=== PATIENT | male | born 1970 | race Caucasian/White ===

== ENCOUNTER 2020-10-02 08:38 | Inpatient (IN) | payer SELFPAY ==
[~2020-10-02] VITALS: Ht 177.8 cm; Wt 129.3 kg
[2020-10-02] MEDS ORDERED: LISINOPRIL40 MG PO (08:44)
[2020-10-02 09:11] LABS: BASOPHILS 0.3 % (0-2); EOSINOPHILS 4.3 % (0-7); HEMATOCRIT 37.2 % (42.0-54.0); HEMOGLOBIN 12.2 g/dL (13.5-17.5); IMMATURE GRANULOCYTES 0.2 % (0-5); LYMPHOCYTE ABS# 1.87 10x3/uL (1.32-3.57); LYMPHOCYTES 20.4 % (15-50); MCH 28.8 pg (26.0-34.0); MCHC 32.8 g/dL (31.0-37.0); MCV 87.7 fL (80.0-100.0); MEAN PLATELET VOLUME 9.3 fL (7.4-10.4); MONOCYTES 7.7 % (2-11); NEUTROPHIL ABS# 6.14 10x3/uL (1.78-5.38); NEUTROPHILS 67.1 % (40-80); RBC 4.24 10x6/uL (4.20-6.10); RDW 13.9 % (11.5-14.5); WBC 9.2 10x3/uL (4.8-10.8)
[2020-10-02 09:12] LABS: PLATELET COUNT 284 10x3/uL (130-400)
[2020-10-02 09:17] LABS: CALC OSMOLALITY 283 mosm/kg (275-300); CALCIUM 8.9 mg/dL (8.5-10.1); CARBON DIOXIDE 23.9 mmol/L (21.0-32.0); CHLORIDE - SERUM 106 mmol/L (98-107); CREATININE - SERUM 1.5 mg/dL (0.6-1.3); GLUCOSE 93 mg/dL (74-106); POTASSIUM - SERUM 3.5 mmol/L (3.5-5.1); SODIUM 142 mmol/L (136-145); UREA NITROGEN 16 mg/dL (7-18); eGFR NON AFRICAN AMERICAN 53 mL/min (90-120)
[2020-10-02 09:23] LABS: APTT 31.1 SECONDS (22.8-39.4); INR 1.15 (0.85-1.17); PROTIME 13.6 SECONDS (11.6-15.0)
[2020-10-02 09:27] LABS: SARS-CoV-2 ANTIGEN NEGATIVE- SARS-COV-2 (NEGATIVE)
[2020-10-02 09:34] LABS: ALBUMIN 4.1 g/dL (3.4-5.0); ALKALINE PHOSPHATASE 78 U/L (30-120); ALT (SGPT) 61 U/L (10-68); BILIRUBIN - TOTAL 1.42 mg/dL (0.2-1.3); CKMB 4.1 U/L (0.0-3.6); CREATINE KINASE 296 UL (21-232); PRO BNP 2001 pg/mL (0-125); PROTEIN - SERUM 7.6 g/dL (6.4-8.2); TROPONIN-I 0.045 ng/mL (0.000-0.060)
[2020-10-02 09:57] VITALS: BP 165/103
[2020-10-02 14:29] VITALS: BP 177/108
[2020-10-02 15:46] LABS: CKMB 3.1 U/L (0.0-3.6); CREATINE KINASE 236 UL (21-232); TROPONIN-I 0.044 ng/mL (0.000-0.060)
--- NOTE | 2020-10-02 15:50 | NUR ---
REPORT CALLED TO THIS RN BY SNETHIL AMOS IN ER.
[2020-10-02 15:54] VITALS: BP 148/101
--- NOTE | 2020-10-02 16:20 | NUR ---
ARRIVED TO UNIT FROM ER VIA W/C IN STABLE CONDITION ACCOMPANIED BY HOSPITAL STAFF, ORIENTED TO UNIT, ORIENTED TO ROOM, ORIENTED TO BED CONTROLS, ORIENTED TO ISOLATION PRACTICES, ASSIST TO BED, OBTAINED WT/HT/VS, CURRENTLY LYING IN BED, AWAKE/ALERT/ORIENTED, T/R SELF AD EDILSON, CONT OF B/B WITH BRPs PER SELF AD EDILSON, DENIES PAIN/OTHER DISCOMFORT AT THIS TIME, PT SOB, PLACED ON O2 AT 2 LPM VIA NC, CALL LIGHT/PHONE AT BEDSIDE, NO S/S OF ACUTE DISTRESS OBSERVED.
[2020-10-02 17:33] VITALS: BP 174/99; Ht 177.8 cm; Wt 129.3 kg
[2020-10-02 19:23] VITALS: BP 178/112
[2020-10-02 22:53] LABS: CKMB 3.6 U/L (0.0-3.6); CREATINE KINASE 223 UL (21-232); TROPONIN-I 0.055 ng/mL (0.000-0.060)
[2020-10-03 00:11] VITALS: BP 171/109
[2020-10-03 05:04] VITALS: BP 172/120
[2020-10-03 06:48] LABS: BASOPHILS 0.4 % (0-2); EOSINOPHILS 3.5 % (0-7); HEMATOCRIT 36.2 % (42.0-54.0); HEMOGLOBIN 11.7 g/dL (13.5-17.5); IMMATURE GRANULOCYTES 0.2 % (0-5); LYMPHOCYTE ABS# 1.48 10x3/uL (1.32-3.57); LYMPHOCYTES 14.8 % (15-50); MCH 28.6 pg (26.0-34.0); MCHC 32.3 g/dL (31.0-37.0); MCV 88.5 fL (80.0-100.0); MEAN PLATELET VOLUME 9.6 fL (7.4-10.4); MONOCYTES 7.5 % (2-11); NEUTROPHIL ABS# 7.33 10x3/uL (1.78-5.38); NEUTROPHILS 73.6 % (40-80); PLATELET COUNT 304 10x3/uL (130-400); RBC 4.09 10x6/uL (4.20-6.10); RDW 14.1 % (11.5-14.5)
[2020-10-03 07:40] VITALS: BP 144/102
--- NOTE | 2020-10-03 08:00 | NUR ---
AM MEDS GIVEN AT THIS TIME. GAVE 10MG OF APRESOLINE FOR HIGH BP. PT UP AD EDILSNO IN ROOM. A/O X4 RESP EVEN AND NONLABORED ON RA. RT AC IV SL. SR 95 ON TELEMETRY. WENT OVER PLAN OF CARE WITH PT, PT DENIES ANY NEEDS AT THIS TIME. CALL LIGHT IN REACH.
[2020-10-03 08:35] LABS: ALBUMIN 3.9 g/dL (3.4-5.0); ALKALINE PHOSPHATASE 77 U/L (30-120); ALT (SGPT) 51 U/L (10-68); BILIRUBIN - TOTAL 1.49 mg/dL (0.2-1.3); CALC OSMOLALITY 278 mosm/kg (275-300); CALCIUM 8.5 mg/dL (8.5-10.1); CARBON DIOXIDE 22.9 mmol/L (21.0-32.0); CHLORIDE - SERUM 105 mmol/L (98-107); CKMB 2.2 U/L (0.0-3.6); CREATINE KINASE 179 UL (21-232); CREATININE - SERUM 1.2 mg/dL (0.6-1.3); GLUCOSE 103 mg/dL (74-106); MAGNESIUM - SERUM 2.2 mg/dL (1.8-2.4); POTASSIUM - SERUM 3.8 mmol/L (3.5-5.1); PROTEIN - SERUM 6.9 g/dL (6.4-8.2); SODIUM 140 mmol/L (136-145); TROPONIN-I 0.037 ng/mL (0.000-0.060); UREA NITROGEN 13 mg/dL (7-18); eGFR NON AFRICAN AMERICAN 69 mL/min (90-120)
[2020-10-03] MEDS ORDERED: NORVASC10 MG PO (11:07)
[2020-10-03] MEDS ORDERED: MICARDIS40 MG PO (11:07)
[2020-10-03 11:09] VITALS: BP 140/81
[2020-10-03 11:11] LABS: CKMB 2.5 U/L (0.0-3.6); CREATINE KINASE 173 UL (21-232)
--- NOTE | 2020-10-03 13:05 | NUR ---
RX'S FOR MISARTAN AND NORVASC CALLED TO [facility] [address]. SPOKE WITH PHARMACIST, AILIN.
--- NOTE | 2020-10-03 13:46 | NUR ---
PROVIDED VERBAL AND WRITTEN DISCHARGE TEACHING TO PT, WHO VERBALIZED UNDERSTANDING REGARDING TEACHING. PROVIDED PT WITH MEDICAITONS FOR TOMORROW. PT WAITING ON RIDE, WILL NOTIFY NURSE WHEN READY FOR WHEELCHAIR.
--- NOTE | 2020-10-03 15:47 | NUR ---
PT LEFT UNIT VIA WHEELCHAIR, WITH ALL BELONGINGS, NAD NOTED.
--- NOTE | 2020-10-03 16:54 | MORECARE ---
CASE MANAGEMENT DISCHARGE SUMMARY PATIENT: FILOMENA WU UNIT: [id number] ADM DATE: 10/02/20 AGE: 50 : 74 SEX: M ROOM/BED: D.2139 AUTHOR: IBIS CHAPMAN PHYSICIAN: REFERRING PHYSICIAN: YUE SANTANA MD DATE OF SERVICE: 10/03/20 Discharge Plan Patient Name: FILOMENA WU [facility] [facility] 1970 Planned Disposition: Home Anticipated Discharge Date: 10/03/20 Discharge Date: 10/03/2020 Expected LOS: 1 Initial Reviewer: [email or web address] Initial Review Date: 10/02/2020 Generated: 10/03/20 5:53 pm Patient Name: FILOMENA WU Page [id number] at 1654 All edits/amendments must be made on the electronic document DICTATION DATE: 10/03/201652 GUZZLER BUILDER: ABILIO 10/03/201652 RPT#: [id number] DC DATE:10/03/20 STATUS: DIS IN [facility] [address] [place] [address] END OF REPORT
--- NOTE | 2020-10-03 17:02 | MORECARE ---
CASE MANAGEMENT DISCHARGE SUMMARY PATIENT: FILOMENA WU UNIT: [id number] ADM DATE: 10/02/20 AGE: 50 : 74 SEX: M ROOM/BED: D.4660 AUTHOR: ARIDOC PHYSICIAN: REFERRING PHYSICIAN: YUE SANTANA MD DATE OF SERVICE: 10/03/20 Discharge Plan Patient Name: FILOMENA WU Facility: [facility]:[place] : 1970 Planned Disposition: Home Anticipated Discharge Date: 10/03/20 Discharge Date: 10/03/2020 Expected LOS: 1 Initial Reviewer: [email or web address] Initial Review Date: 10/02/2020 Generated: 10/03/20 6:01 pm Comments DCP- Discharge Planning Updated by [email or web address]: Thomas Randall on 10/03/20 3:[address] CM met with patient to complete DC plan and to evaluate needs. At discharge, the patient plans to return home and feels this is a safe discharge. CM discussed availability of home health, rehab services, and medical equipment. Patient declined HHS, SNF, IPR, and DME. Patient stated that he will not be able to get his blood pressure medications until Monday when his money will deposit into his account. Patient stated that he will get his medications on Monday. CM team coordinated with [facility] pharmacy and house servant to arrange medication coverage over weekend. Patient voiced no other needs at this time and is satisfied with DC plan. CM will continue to follow and will assist as needed with dc plans/needs. DCPIA - Discharge Planning Initial Assessment Updated by [email or web address]: Thomas Randall on 10/03/20 4:55 pm * Is the patient Alert and Oriented? Yes * How many steps to enter\exit or inside your home? 0/0 * PCP NONE * Pharmacy [facility] on [address] - [facility] [address] * Preadmission Environment Home Alone * ADLs Independent * Equipment Cane * Other Equipment n/a * List name and contact numbers for known caregivers / representatives who currently or will assist patient after discharge: TAMMI ROJAS * Verbal permission to speak to the caregivers and representatives has been obtained from the patient. Yes * Community resources currently utilized None * Please name any agencies selected above. n/a * Additional services required to return to the preadmission environment? No * Can the patient safely return to the preadmission environment? Yes * Has this patient been hospitalized within the prior 30 days at any hospital? No Last DP export: 10/03/20 3:54 p Patient Name: FILOMENA WU Page [phone] at 1702 All edits/amendments must be made on the electronic document DICTATION DATE: 10/03/201701 GROUP THERAPY COUNSELOR: ABILIO 10/03/201701 RPT#: [id number] DC DATE:10/03/20 STATUS: DIS IN [facility] [address] [place] [address] END OF REPORT
--- NOTE | 2020-10-05 07:43 | MORECARE ---
CASE MANAGEMENT DISCHARGE SUMMARY PATIENT: FILOMENA WU UNIT: [id number] ADM DATE: 10/02/20 AGE: 50 : 74 SEX: M ROOM/BED: D.3707 AUTHOR: ARIDOC PHYSICIAN: REFERRING PHYSICIAN: YUE SANTANA MD DATE OF SERVICE: 10/05/20 Discharge Plan Patient Name: FILOMENA WU Facility: [facility]:[place] : 1970 Planned Disposition: Home Anticipated Discharge Date: 10/03/20 Discharge Date: 10/03/2020 Expected LOS: 1 Initial Reviewer: [email or web address] Initial Review Date: 10/02/2020 Generated: 10/05/20 8:43 am Comments DCP- Discharge Planning Updated by [email or web address]: Thomas Randall on 10/03/20 3:[address] CM met with patient to complete DC plan and to evaluate needs. At discharge, the patient plans to return home and feels this is a safe discharge. CM discussed availability of home health, rehab services, and medical equipment. Patient declined HHS, SNF, IPR, and DME. Patient stated that he will not be able to get his blood pressure medications until Monday when his money will deposit into his account. Patient stated that he will get his medications on Monday. CM team coordinated with [facility] pharmacy and electrician helper powerhouse to arrange medication coverage over weekend. Patient voiced no other needs at this time and is satisfied with DC plan. CM will continue to follow and will assist as needed with dc plans/needs. DCPIA - Discharge Planning Initial Assessment Updated by [email or web address]: Thomas Randall on 10/03/20 4:55 pm * Is the patient Alert and Oriented? Yes * How many steps to enter\exit or inside your home? 0/0 * PCP NONE * Pharmacy [facility] on [address] - [facility] [address] * Preadmission Environment Home Alone * ADLs Independent * Equipment Cane * Other Equipment n/a * List name and contact numbers for known caregivers / representatives who currently or will assist patient after discharge: TAMMI ROJAS * Verbal permission to speak to the caregivers and representatives has been obtained from the patient. Yes * Community resources currently utilized None * Please name any agencies selected above. n/a * Additional services required to return to the preadmission environment? No * Can the patient safely return to the preadmission environment? Yes * Has this patient been hospitalized within the prior 30 days at any hospital? No Last DP export: 10/03/20 4:02 p Patient Name: FILOMENA WU Page [phone] at 0743 All edits/amendments must be made on the electronic document DICTATION DATE: 10/05/20742 ELECTROCARDIOGRAPH OPERATOR: ABILIO 10/05/2043 RPT#: [id number] DC DATE:10/03/20 STATUS: DIS IN [facility] [address] [place] [address] END OF REPORT
== END 2020-10-03 15:47 | disposition home or self-care (01) | DRG 304 ==
LOC: D.ER 08:38 → D.EDHOLD 12:10 → D.M2 12:10
PROVIDERS: Family Medicine; ADMIT Emergency Medicine; ATTEND Emergency Medicine
DX: I16.0 Hypertensive urgency (principal); J18.9 Pneumonia, unspecified organism; N17.9 Acute kidney failure, unspecified; Z68.41 Body mass index [BMI] 40.0-44.9, adult; E66.01 Morbid (severe) obesity due to excess calories; J44.9 Chronic obstructive pulmonary disease, unspecified

== ENCOUNTER 2020-11-25 09:26 | Inpatient (IN) | payer MEDICAID ==
--- NOTE | 2020-11-24 20:11 | NUR ---
RECIEVED SITTING UP IN SIDE OF BED. SCRATCHING HIS ARM WITH C/O DRY SKIN. GAVE HIM SOME LOTION. ALERT AND ORIENTED X4. UP AD EDILSON. TELEMETRY IN PLACE. DENIES ANY NEEDS AT THIS TIME.
[~2020-11-25] VITALS: Ht 177.8 cm; Wt 122.5 kg
--- NOTE | ~2020-11-25 | EC ---
PATIENT:FILOMENA WU DATE OF SERVICE: 11/25/20 SEX: M MEDICAL RECORD: [id number] DATE OF : 74 LOCATION:D.M2 D.212 AGE OF PATIENT: 50 ADMISSION DATE: 11/25/20 REFERRING PHYSICIAN: INTERPRETING PHYSICIAN: DAVID LLOYD MD ECHOCARDIOGRAM REPORT ECHO CHARGES 4 ECHO COMPLETE Date: 11/26/20 CLINICAL DIAGNOSIS: SOB, CP ECHOCARDIOGRAPHIC MEASUREMENTS (adult normal given) AC root (d.<3.7cm) 3.1 cm LV Septum d (<1.2 cm> 1.5 cm Valve Excursion 1.9 cm LV Septum (systole) 1.8 cm Left Atria (s.<4.0cm> 5.1 cm LVPW d(<1.2cm) 1.3 cm RV (d.<2.3cm) 3.5 cm LVPW (sytole) 1.4 cm LV diastole(<5.6CM) 6.5 cm MV E-F(>70mm/sec) cm LV systole 5.4 cm LVOT Diameter 2.1 cm MV exc.(>10mm) 1.4 cm Est.ejection fraction (50-75%) % DOPPLER: LVIT cm/sec A 38 cm/sec E 93 cm/sec LA cm/sec RVSP 40 mmHg LVOT 65 cm/sec AOP1/2T m/s Asc. Ao 120 cm/sec RVOT 59 cm/sec RA cm/sec PA 85 cm/sec AV Gradient Peak 5.7 mmHg AV Mean 3.0 mmHg AV Area 1.8 cm MV Gradient Peak 7.0 mmHg MV Mean 2.0 mmHg MV Area cm COMMENTS: Kiln Charger: Shanae CHAVEZ Satellite Communications Engineer: 5 Dr. Lloyd TAPE# Pericardial Effusion N DATE OF SERVICE: CLINICAL DIAGNOSIS: Chest pain/shortness of breath. 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 Overall, normal left ventricular chamber size and contractile function, ejection fraction 55%. FINDINGS: Left atrial chamber appears normal. Right atrium and right ventricular chamber size and function appears normal. Aortic valve appears ECHOCARDIOGRAM REPORT [id number] FILOMENA WU normal. No aortic regurgitation. Mitral valve appears normal. Mild mitral regurgitation. Tricuspid valve appears normal. Trace to mild tricuspid regurgitation. Pulmonic valve is not well visualized. No pulmonary insufficiency noted. No pericardial effusion visualized. IMPRESSION: Overall, normal left ventricular chamber size and contractile function, ejection fraction 55%. TRANSINT:[id number] Voice Confirmation ID: [id number] DOCUMENT ID: [id number] DAVID LLOYD MD CC: [id number] DICTATION DATE: 11/26/20 1537 RECORDS ASSOCIATE: 11/26/202008 ADM IN [facility] [address] [place] [id number]
[~2020-11-25 09:26] MED LIST: LISINOPRIL40 MG PO; MICARDIS40 MG PO; NORVASC10 MG PO
--- NOTE | 2020-11-25 09:57 | NUR ---
RT NOTIFIED OF ABG, INHALER TREATMENT.
[2020-11-25 10:11] LABS: BASOPHILS 0.5 % (0-2); EOSINOPHILS 18.2 % (0-7); HEMOGLOBIN 9.7 g/dL (13.5-17.5); IMMATURE GRANULOCYTES 0.1 % (0-5); LYMPHOCYTE ABS# 0.89 10x3/uL (1.32-3.57); LYMPHOCYTES 11.2 % (15-50); MCH 26.9 pg (26.0-34.0); MCHC 31.3 g/dL (31.0-37.0); MCV 85.9 fL (80.0-100.0); MEAN PLATELET VOLUME 8.8 fL (7.4-10.4); MONOCYTES 12.6 % (2-11); NEUTROPHIL ABS# 4.56 10x3/uL (1.78-5.38); NEUTROPHILS 57.4 % (40-80); PLATELET COUNT 254 10x3/uL (130-400); RBC 3.61 10x6/uL (4.20-6.10); RDW 15.5 % (11.5-14.5)
[2020-11-25 10:20] LABS: CALC OSMOLALITY 272 mosm/kg (275-300); CALCIUM 8.6 mg/dL (8.5-10.1); CARBON DIOXIDE 26.1 mmol/L (21.0-32.0); CHLORIDE - SERUM 102 mmol/L (98-107); CREATININE - SERUM 1.3 mg/dL (0.6-1.3); GLUCOSE 105 mg/dL (74-106); POTASSIUM - SERUM 4.4 mmol/L (3.5-5.1); SODIUM 136 mmol/L (136-145); UREA NITROGEN 15 mg/dL (7-18); eGFR NON AFRICAN AMERICAN 62 mL/min (90-120)
[2020-11-25 10:26] LABS: SARS-CoV-2 ANTIGEN NEGATIVE- SARS-COV-2 (NEGATIVE)
[2020-11-25 10:28] LABS: APTT 40.8 SECONDS (22.8-39.4); INR 1.31 (0.85-1.17); PROTIME 15.1 SECONDS (11.6-15.0)
[2020-11-25 10:35] LABS: ALBUMIN 2.8 g/dL (3.4-5.0); ALKALINE PHOSPHATASE 88 U/L (30-120); ALT (SGPT) 46 U/L (10-68); BILIRUBIN - TOTAL 0.99 mg/dL (0.2-1.3); CKMB 1.1 U/L (0.0-3.6); CREATINE KINASE 44 UL (21-232); PRO BNP 1758 pg/mL (0-125); PROTEIN - SERUM 6.4 g/dL (6.4-8.2)
--- NOTE | 2020-11-25 10:37 | NUR ---
BLOOD CULTURE #2 DRAWN ET TO LAB AT THIS TIME.
[2020-11-25] MEDS ORDERED: BAYER CHEWABLE81 MG PO (11:02)
[2020-11-25] MEDS ORDERED: PLAVIX75 MG PO (11:03)
[2020-11-25] MEDS ORDERED: COREG25 MG PO (11:03)
[2020-11-25] MEDS ORDERED: CLONIDINE HCL0.1 MG PO (11:03)
[2020-11-25] MEDS ORDERED: ENTRESTO 24 MG1 EACH PO (11:03)
[2020-11-25] MEDS ORDERED: K-DUR20 MEQ PO (11:04)
[2020-11-25] MEDS ORDERED: NITROQUICK0.4 MG SL (11:04)
[2020-11-25] MEDS ORDERED: FUROSEMIDE40 MG PO (11:04)
[2020-11-25] MEDS ORDERED: CRESTOR40 MG PO (11:04)
[2020-11-25 13:51] LABS: CKMB 1.3 U/L (0.0-3.6); CREATINE KINASE 43 UL (21-232); TROPONIN-I 0.027 ng/mL (0.000-0.060)
--- NOTE | 2020-11-25 15:00 | NUR ---
MEAL TRAY TO PT.
--- NOTE | 2020-11-25 16:15 | NUR ---
ARRIVED TO FLOOR VIA WHEELCHAIR. COVID ISOLATION IN PLACE. ON 2LNC. DENIES NEEDS AT THIS TIME. CONTINUE POC AND SAFETY PRECAUTIONS. CALL LIGHT IN REACH.
--- NOTE | 2020-11-25 17:55 | NUR ---
DR. AMIN STATES PATIENT IS NOT COVID JUST CHF. STATES WE CAN TAKE HIM OUT OF ISOLATION. LEFT SP A MESSAGE TO LET HER KNOW.
[2020-11-25 18:12] VITALS: BMI 38.8
[2020-11-25 20:00] VITALS: BP 105/76
[2020-11-25 20:44] LABS: CKMB 1.3 U/L (0.0-3.6); CREATINE KINASE 39 UL (21-232); TROPONIN-I 0.027 ng/mL (0.000-0.060)
[2020-11-26] VITALS: BP 131/95
--- NOTE | 2020-11-26 00:54 | NUR ---
DIGITAL STRATEGIST CALLED EARLIER TO REPORT HE IS IN 150'S WITH A FLUTTER. STAYED IN FLUTTER. CALLED DR. SANTIAGO WITH ORDERS FOR CARDIZEM GTT AT 10CC/HR. HE IS ASYMPTOMATIC OTHERWISE.
--- NOTE | 2020-11-26 02:24 | NUR ---
IV OUT. DOES NOT KNOW HOW IT CAME OUT. VERY ACTIVE IN HIS SLEEP. TELEMETRY ALSO OFF. PUT BACK ON.
[2020-11-26 03:16] LABS: BASOPHILS 0.4 % (0-2); EOSINOPHILS 18.7 % (0-7); HEMATOCRIT 30.3 % (42.0-54.0); HEMOGLOBIN 9.6 g/dL (13.5-17.5); IMMATURE GRANULOCYTES 0.1 % (0-5); LYMPHOCYTE ABS# 1.18 10x3/uL (1.32-3.57); LYMPHOCYTES 14.2 % (15-50); MCH 26.9 pg (26.0-34.0); MCHC 31.7 g/dL (31.0-37.0); MCV 84.9 fL (80.0-100.0); MEAN PLATELET VOLUME 8.6 fL (7.4-10.4); MONOCYTES 9.6 % (2-11); NEUTROPHIL ABS# 4.73 10x3/uL (1.78-5.38); PLATELET COUNT 267 10x3/uL (130-400); RBC 3.57 10x6/uL (4.20-6.10); RDW 15.4 % (11.5-14.5); WBC 8.3 10x3/uL (4.8-10.8)
--- NOTE | 2020-11-26 03:18 | NUR ---
ATTEMPTED TO RESTART IV. UNSUCESSFUL WITH 2 ATTEMPTS. RN FROM ICU STARTED 20 GA TO RT UPPER ARM AND LT AC. CARDIZEM INFUSING AT 10CC/HR TO RT UPPER ARM. N.O FOR LASIX 400MG PER DR. SANTIAGO. PT IS HAVING A HARD TIME CATCHING HIS BREATH. GRUNTING AND GENERALLY UNCOMFORTABLE. LASIX GIIVEN IN LT AC. INSTRUCTED HIM TO USE URINAL FOR OUT PUT PURPOSE.
[2020-11-26 03:40] LABS: ALBUMIN 2.7 g/dL (3.4-5.0); ALKALINE PHOSPHATASE 100 U/L (30-120); ALT (SGPT) 52 U/L (10-68); BILIRUBIN - TOTAL 0.83 mg/dL (0.2-1.3); CALC OSMOLALITY 272 mosm/kg (275-300); CALCIUM 8.3 mg/dL (8.5-10.1); CHLORIDE - SERUM 100 mmol/L (98-107); CKMB 0.9 U/L (0.0-3.6); CREATINE KINASE 57 UL (21-232); CREATININE - SERUM 1.2 mg/dL (0.6-1.3); GLUCOSE 131 mg/dL (74-106); POTASSIUM - SERUM 4.5 mmol/L (3.5-5.1); PROTEIN - SERUM 6.4 g/dL (6.4-8.2); SODIUM 135 mmol/L (136-145); TROPONIN-I 0.023 ng/mL (0.000-0.060); UREA NITROGEN 15 mg/dL (7-18); eGFR NON AFRICAN AMERICAN 69 mL/min (90-120)
[2020-11-26 04:00] VITALS: BP 131/101
[2020-11-26 08:09] VITALS: BP 122/85
--- NOTE | 2020-11-26 08:10 | NUR ---
WALKED IN ROOM TO PATIENT IV TUBING IN HALD AND IV PULLED OUT OF ARM. NO CARDIZEM INFUSING. UNSURE HOW LONG IT HAS BEEN OFF. PATIENT STATES HE TURNED IV PUMP OFF IN THE MIDDLE OF THE NIGHT. INSTRUCTED HE DOES NOT NEED TO DO THAT HE NEEDS THAT MEDICATION. PATIENT GROGGY AND RESTLESS. TALKING IN HIS SLEEP, TOSSING AND TURNING. KEEPS FALLING ASLEEP MID SENTENCE. SPOKE WITH YVONNE ARGUELLO APN. I BELIEVE THIS IS FROM THE AMBIEN TAKEN LASTNIGHT. PATIENT WAS NOT THIS WAY WHEN ADMITTED YESTERDAY.
--- NOTE | 2020-11-26 10:28 | NUR ---
ALIDA RN INSERTED 20 GUAGE IV IN LEFT AC. PATIENT TOSSING AND TURNING AND PULLED IV OUT. TALKED WITH AMNA AND YVONNE ABOUT NOT HAVING IV AND UNABLE TO START AMIODARONE DRIP ORDERED.
--- NOTE | 2020-11-26 10:30 | NUR ---
NEW IV STARTED TO LEFT AC WITH 20G.
--- NOTE | 2020-11-26 12:02 | NUR ---
ER NURSE HERE WITH ULTRASOUND MACHINE TO TRY FOR IV.
[2020-11-26 13:44] VITALS: Ht 177.8 cm; Wt 122.5 kg
--- NOTE | 2020-11-26 15:15 | NUR ---
ER NURSE SITED 22 GUAGE IN LEFT WRIST. AMIODARONE DRIP STARTED AT 33.3ML/HR.
[2020-11-26 16:12] VITALS: BP 131/92
[2020-11-26 22:11] VITALS: BP 139/85
[2020-11-27 02:11] VITALS: BP 102/68
--- NOTE | 2020-11-27 03:50 | NUR ---
AT 0300 PATIENT APPEARED SHAKY AND NERVOUS. PT EXPRESSED TROUBLE SLEEPING SINCE HEALTH STARTED DECLINING LAST MONTH. PT EXPRESSES FEAR OF DYING. PT AT BEDSIDE. PT STATES PT HAS BAD DREAMS WHEN HE DOES SLEEP AND WAKES UP IN A PANIC. MD CALLED FOR ANXIETY MEDICATION. NATIV[place] ORDERED 0.5MG IV ATIVAN Q8H PRN ANXIETY. DOSE GIVEN TO PT AT 0318, PT OBSERVED RESTING COMFORTABLY AT 0345. IV INTACT. BEDSIDE EDUCATION DONE WITH PT AND ON AMIODARONE AND ATIVAN. WILL CONTINUE TO MONITOR.
[2020-11-27 05:25] VITALS: BP 147/75
--- NOTE | 2020-11-27 06:13 | NUR ---
PT OBSERVED SITTING ON THE SIDE OF THE BED IN THE DARK. PT APPEARS PANICKED WITH RAPID UNLABORED BREATHING. PT VERBALIZED HAVING BAD DREAMS AND WAS LOOKING FOR HIS . PT WAS TOLD THAT HIS WENT HOME AT 0500 THIS MORNING TO GET SOME REST. PT REASSURED THAT HE WAS SAFE AND VITALS WNL. IV REINFORCED AND TELEMETRY REAPPLIED. PT STATED HE WOULD TRY TO REST UNTIL BREAKFAST. WILL CONTINUE TO MONITOR
--- NOTE | 2020-11-27 07:13 | NUR ---
RECEIVE SHIFT REPORT. RESTING IN BED WITH EYES CLOSED. TOSSING AND TURNING. TALKING IN SLEEP. WILL CONTINUE POC AND SAFETY PRECAUTIONS. CALL LIGHT IN REACH.
[2020-11-27 09:10] VITALS: BP 125/87
[2020-11-27] MEDS ORDERED: PACERONE200 MG PO (10:30)
[2020-11-27] MEDS ORDERED: ENTRESTO 24 MG1 EACH PO (11:02)
[2020-11-27 12:59] VITALS: BP 129/78
== END 2020-11-27 14:28 | disposition home or self-care (01) | DRG 292 ==
LOC: D.ER 09:26 → D.M2 14:43
PROVIDERS: Family Medicine; ADMIT Family Medicine; ATTEND Family Medicine
DX: I11.0 Hypertensive heart disease with heart failure (principal); I48.92 Unspecified atrial flutter; I42.9 Cardiomyopathy, unspecified; I25.10 Atherosclerotic heart disease of native coronary artery without angina pectoris; Z20.822 Contact with and (suspected) exposure to COVID-19; E78.5 Hyperlipidemia, unspecified; D64.9 Anemia, unspecified; I50.23 Acute on chronic systolic (congestive) heart failure

== ENCOUNTER → 2021-02-01 14:17 | Outpatient (CLI) | payer SELFPAY ==
[2020-11-26 13:44] VITALS: BMI 38.7
[~2021-02-01 14:17] MED LIST changes: +BAYER CHEWABLE81 MG PO; +CLONIDINE HCL0.1 MG PO; +COREG25 MG PO; +CRESTOR40 MG PO; +ENTRESTO 24 MG1 EACH PO; +FUROSEMIDE40 MG PO; +K-DUR20 MEQ PO; +NITROQUICK0.4 MG SL; +PACERONE200 MG PO; +PLAVIX75 MG PO
[2021-02-01 15:06] LABS: ANION GAP 20.5 mmol/L (8-16); CALCIUM 8.4 mg/dL (8.5-10.1); CARBON DIOXIDE 24.1 mmol/L (21.0-32.0); CREATININE - SERUM 1.5 mg/dL (0.6-1.3)
[2021-02-01 15:33] LABS: POTASSIUM - SERUM 8.6 mmol/L (3.5-5.1)
== END | disposition home or self-care (01) ==
LOC: D.LABREF 14:17
PROVIDERS: ATTEND Nurse Practitioner
DX: I42.9 Cardiomyopathy, unspecified (principal)